=== PATIENT | female | born 1940 | race Caucasian/White ===

== ENCOUNTER → 2016-05-31 | Outpatient (CLI) | payer OTHER, MEDICARE ==
[2016-05-31 16:58] LABS: BASOPHILS # (AUTO) 0.03 10*3/UL; BASOPHILS % (AUTO) 0.5 % (0-1); EOSINOPHILS % (AUTO) 3.9 % (0-8); HEMATOCRIT 34.5 % (37.0-47.0); HEMOGLOBIN 10.9 g/dL (12.0-16.0); IMM GRAN % (AUTO) 0.2 % (0-5); IMM GRAN# (AUTO) 0.01 10*3/UL; LYMPHOCYTES # (AUTO) 2.58 10*3/uL; LYMPHOCYTES % (AUTO) 39.8 % (10-50); MEAN CORPUSCULAR HEMOGLOBIN 24.9 PG (27-31); MEAN CORPUSCULAR HGB CONC 31.6 g/dL (33-37); MEAN PLATELET VOLUME 11.4 FL (7.4-12.2); MONOCYTES # (AUTO) 0.44 10*3/UL (0.3-0.8); MONOCYTES % (AUTO) 6.8 % (5-15); NEUTROPHILS # (AUTO) 3.18 10*3/UL; NEUTROPHILS % (AUTO) 48.8 % (50-80); RDW COEFFICIENT OF VARIATION 17.7 % (11.5-14.5); RED BLOOD COUNT 4.37 10^6/uL (4.20-5.40); WHITE BLOOD COUNT 6.49 10^3/uL (4.8-10.8)
[2016-05-31 17:05] LABS: PLATELET MORPHOLOGY COMMENT NORMAL MORPHOLOGY (NORM)
== END ==
LOC: MOB LAB 15:34
PROVIDERS: ATTEND Internal Medicine
DX: E03.9 Hypothyroidism, unspecified (principal); D50.9 Iron deficiency anemia, unspecified; R19.7 Diarrhea, unspecified
CPT/HCPCS: 36415; 84436; 84443; 85025; 99214

== ENCOUNTER → 2016-06-09 | Outpatient (CLI) | payer OTHER, MEDICARE | LOC: MMPC 11:11 | PROVIDERS: ATTEND Surgery | DX: K21.9 Gastro-esophageal reflux disease without esophagitis (principal); R10.9 Unspecified abdominal pain; D64.9 Anemia, unspecified; R19.4 Change in bowel habit | CPT/HCPCS: 99203; G0463 ==

== ENCOUNTER → 2016-06-13 | Day surgery (SDC) | payer OTHER, MEDICARE ==
[~2016-06-13] MED LIST: LIDOCAINE 2% VISCOUS(20 MG/1 ML) - 15 ML UD CUP PO ONE; LIDOCAINE W/ SODIUM BICARB 0.5 ML SYR ONE; Lactated Ringers 1,000 ML PRIMARY IV ONE; MIDAZOLAM 5 MG/1 ML ONE; fentaNYL Inj 100 MCG/2 ML VIAL ONE
--- NOTE | 2016-06-13 09:49 | GEN.OPNOTE ---
EGD / Colonoscopy Report Surgery Date: 06/13/16 Preoperative Diagnosis: GERD. Abdominal pain. Anemia. Change in bowel habits with frequent diarrhea. Postoperative Diagnosis: Same. Hiatal hernia. Antral and gastric body ulcers. Extensive diverticulosis. Procedure: #1 esophagogastroduodenoscopy with biopsy. #2 complete colonoscopy with multiple random biopsies. Surgeon: Arias Laurent MD Anesthesia Provider: Bran Hernandez CRNA Anesthesia Type: MAC Indications: See preoperative diagnosis. EGD Findings: Esophagus: [Normal] GE Junction : [Hiatal hernia with inflammation at the Z line] Fundus : [Normal] Body : [Ulcer, healing] Prepyloric : [Ulcer, healing] Small Intestine : [Normal] A lubricated flexible upper endoscope was inserted and passed through the esophagus and stomach into the duodenum. The duodenum and duodenal bulb were unremarkable. The pyloric channel was widely patent. There is clearly an ulcer in the antrum. Biopsies were taken at the ulcer edges. Hemostasis was assured. The scope was retroflexed. There is an ulcer in the body of the stomach. No biopsies were taken. The scope was straightened. Air was aspirated. The scope was withdrawn into the distal esophagus. There is a moderate sized hiatal hernia. There is inflammation at the Z line. Multiple biopsies were taken. Hemostasis was assured. The scope was withdrawn through the remainder of a normal-appearing esophagus and brought through the hypopharynx under suction completing that portion of the procedure. Colonoscopy Findings: Prep : [Fair with some retained liquid and solid stool] Cecum : [Normal] Ascending : [Normal] Transverse : [Normal] Sigmoid : [Extensive diverticulosis] Rectum : [Normal] Digital Rectal Exam : [Normal] A lubricated flexible colonoscope was inserted and passed to the blind end of the cecum. A lubricated flexible colonoscope was inserted and passed through a tortuous sigmoid and advanced to the blind end of the cecum. The blind end of the cecum and ileocecal valve were clearly seen. Other than extensive diverticulosis the colonoscopy was visually normal. There was some retained stool but most of it was cleared. A small polyp could've been missed. Random biopsies were taken from the right colon, transverse colon, sigmoid colon, and rectum. There was no evidence of polyp, tumor, neoplastic mass, infectious or inflammatory process. The scope was withdrawn completing the procedure. Patient tolerated the procedure well without complication. She was taken to outpatient surgery in stable condition. We will call the biopsy results when available and plan therapy and follow-up accordingly. I'm going to switch her to pantoprazole 40 mg by mouth twice a day at this time as he omeprazole is not seemingly working. She probably needs to stop her meloxicam as well.
[2016-06-13 11:26] VITALS: RESP 14
[2016-06-13 11:34] VITALS: TEMP 97.7
== END ==
LOC: SDSC 08:03
PROVIDERS: ATTEND Surgery
DX: K21.9 Gastro-esophageal reflux disease without esophagitis (principal); K44.9 Diaphragmatic hernia without obstruction or gangrene; K25.9 Gastric ulcer, unspecified as acute or chronic, without hemorrhage or perforation; K57.90 Diverticulosis of intestine, part unspecified, without perforation or abscess without bleeding
CPT/HCPCS: 43239; 45380; J2704; J3010; J2250; J7120

== ENCOUNTER → 2016-06-16 | Outpatient (CLI) | payer OTHER, MEDICARE | LOC: MMPC 11:11 | PROVIDERS: ATTEND Internal Medicine | DX: D50.0 Iron deficiency anemia secondary to blood loss (chronic) (principal); K25.9 Gastric ulcer, unspecified as acute or chronic, without hemorrhage or perforation; F33.0 Major depressive disorder, recurrent, mild; G47.00 Insomnia, unspecified; M15.9 Polyosteoarthritis, unspecified; G47.33 Obstructive sleep apnea (adult) (pediatric) | CPT/HCPCS: 99214; G0463 ==

== ENCOUNTER 2016-07-30 14:10 | Emergency (ER) | payer OTHER, MEDICARE ==
[2016-07-30] MEDS ORDERED: NORMAL SALINE 10 ML SYRINGE FLUSH IVP PRN (14:58)
[2016-07-30] MEDS ORDERED: Sodium Chloride 0.9% 1,000 ML PRIMARY IV ONE (14:58)
[2016-07-30] MEDS ORDERED: Pantoprazole Inj 40 MG in Normal Saline Flush 10 ML IVP ONE (14:58)
[2016-07-30 15:41] LABS: BASOPHILS # (AUTO) 0.01 10*3/UL; BASOPHILS % (AUTO) 0.2 % (0-1); EOSINOPHILS % (AUTO) 2.6 % (0-8); HEMATOCRIT 36.6 % (37.0-47.0); HEMOGLOBIN 11.6 g/dL (12.0-16.0); IMM GRAN % (AUTO) 0.3 % (0-5); IMM GRAN# (AUTO) 0.02 10*3/UL; LYMPHOCYTES # (AUTO) 2.37 10*3/uL; LYMPHOCYTES % (AUTO) 38.4 % (10-50); MEAN CORPUSCULAR HEMOGLOBIN 24.1 PG (27-31); MEAN CORPUSCULAR HGB CONC 31.7 g/dL (33-37); MEAN PLATELET VOLUME 10.3 FL (7.4-12.2); MONOCYTES # (AUTO) 0.47 10*3/UL (0.3-0.8); MONOCYTES % (AUTO) 7.6 % (5-15); NEUTROPHILS # (AUTO) 3.14 10*3/UL; NEUTROPHILS % (AUTO) 50.9 % (50-80); RDW COEFFICIENT OF VARIATION 17.3 % (11.5-14.5); RED BLOOD COUNT 4.81 10^6/uL (4.20-5.40); WHITE BLOOD COUNT 6.17 10^3/uL (4.8-10.8)
[2016-07-30 15:47] LABS: PLATELET MORPHOLOGY COMMENT NORMAL MORPHOLOGY (NORM)
[2016-07-30 15:49] LABS: BILIRUBIN,TOTAL 0.4 mg/dL (0.3-1.2); BUN/CREATININE RATIO 17.77 (6-20); CALCIUM 9.9 mg/dL (8.7-10.7); CREATININE 0.9 mg/dL (0.50-1.20); TOTAL PROTEIN 7.4 g/dL (6.1-8.0)
[2016-07-30 16:06] LABS: BILIRUBIN,URINE NEGATIVE (NEG); CLARITY,URINE Slightly Clo (CLEAR); GLUCOSE, URINE (UA) NEGATIVE (NEG); LEUKOCYTE ESTERASE ,URINE MODERATE (NEG); NITRATE,URINE POSITIVE (NEG); OCCULT BLOOD,URINE SMALL (NEG); PROTEIN,URINE NEGATIVE (NEG); UROBILINOGEN,URINE 0.2 EU/dL (0.2)
[2016-07-30 16:21] LABS: RENAL EPITHELIAL CELLS,URINE FEW; SQUAMOUS EPITHELIAL CELL,UR RARE; URINE SAMPLE TYPE CATH SPECIMEN
[2016-07-30 16:22] LABS: BACTERIA,URINE MANY
--- NOTE | 2016-07-30 17:26 | DI ---
HISTORY: Abdominal pain. TECHNIQUE: Multiple CT images were obtained through the abdomen and pelvis with contrast. FINDINGS: There is a small hiatal hernia. There is no free air nor free fluid. Multiple colonic diverticula are seen without acute diverticul itis. The liver, spleen, pancreas, kidneys and adrenals are unremarkable. The patient is status post posterior spinal fusion of the lower lumbar spine. There is levoscoliosis of the upper lumbar spine. No hernia is demonstrated. There is a normal urinary bladder. IMPRESSION: 1. Hiatal hernia. 2. No acute intra-abdominal pathology.
[2016-07-30 17:51] VITALS: RESP 20; TEMP 97
--- NOTE | 2016-07-31 01:08 | PDOC ---
Abdomen/Flank HPI - General Chief Complaint: Genitourinary Complaint Stated Complaint: abdominal pain; dysuria Date Seen by Provider: 07/30/16 Time Seen by Provider: 14:40 Source: POSITIVE: Patient Exam Limitations: POSITIVE: No limitations Nurse's Notes Reviewed & Considered: Yes - History of Present Illness Initial Comments: The patient is a 75-year-old female. She states that for the past week she has had some or localized abdominal pain; mostly in the para umbilical and suprapubic area. She also complains of some dysuria. She states she feels like "my bladder is shifting". Body Location Affected: REPORTS: Abdomen Timing: REPORTS: Constant Duration: <1 week (Approximately one week) Severity: Moderate Quality: REPORTS: "Pain" (Poorly localized abdominal pain) Abdominal Pain Onset Location: REPORTS: RUQ, LUQ, Periumbilical, Suprapubic Abdominal Pain Radiation: REPORTS: No radiation Context: REPORTS: None Modifying Factors: improves with: Nothing Associated Symptoms: DENIES: Denies symptoms, Back pain, Bloody Emesis, Chest pain, Coffee Grounds Emesis, Chills, Diaphoresis, Fever, Fatigue, Headache, Heartburn, Loss of Appetite, Nausea, Rash, Shortness of breath, Swelling/mass in abdomen, Syncope, Testicular Pain, Vomiting, Weakness, Grossly Bloody Diarrhea, Constipation, Diarrhea, Dysuria, Incontinent Stool, Incontinent Urine , Mucous Diarrhea, Difficulty Walking, Dizziness, Light Headedness, Numbness, Other Similar Symptoms Previously: No Recent Care Received: REPORTS: Denies Any Prior Injuries Related to Current Complaint?: No - Patient Home Medications Home Medications: Home Medications Calcium 600 + Vit D Caplet 3 each PO DAILY 12/17/10 Vitamin D 10,000 unit PO QD 90 Days 07/06/11 Levothyroxine Sodium 1 tab PO DAILY #30 tab 07/30/15 Memantine HCl [Namenda] 1 tab PO QD #180 tab 09/30/15 Pantoprazole Sodium 40 mg PO BID #180 tab 06/13/16 Temazepam 1 cap ORAL QHS #90 capsule 06/16/16 Vilazodone Hydrochloride [Viibryd] 1 tab PO DAILY #90 tab 06/16/16 Cyclobenzaprine HCl 1 tab ORAL TID PRN #90 tab 07/06/16 Ciprofloxacin HCl 500 mg PO Q12H #20 tab 07/30/16 - Patient Allergies Allergies/Adverse Reactions: Allergies Allergy/AdvReac Type Severity Reaction Status Date / Time codeine Allergy Intermediate HIVES Verified 07/30/16 15:37 donepezil HCl [From Aricept] Allergy Intermediate rash Verified 07/30/16 15:37 cefdinir AdvReac Severe VOMITING Verified 07/30/16 15:37 hydrochlorothiazide AdvReac Severe VOMITING Verified 07/30/16 15:37 vortioxetine hydrobromide AdvReac Severe shakey, Verified 07/30/16 15:37 [From Brintellix] dizzy, nausea, sweats, uncontrolled yelling morphine AdvReac Intermediate N/V Verified 07/30/16 15:37 Past Medical History - heen HEENT History: Dentures/Partials Cardiovascular History: Denies History Respiratory History: Sleep Apnea, Home CPAP Use Gastrointestinal History: GERD Additional Gastrointestinal History: CHANGE IN BM/ DIARRHEA/ ABD PAIN Genitourinary History: Kidney Stones Additional Genitourinary History: YEARS AGO Endocrine History: Hypothyroidism Musculoskeletal History: Osteoporosis, Gout, Joint Pain Prosthesis or Implant: Yes (RIGHT TKA/BILAT BUNION/PLATE IN LOW BACK) Additional Musculoskeletal History: RESTLESS LEGS Neurological History: Denies History Additional Neurological History: MEMORY LOSS/RESTLESS LEG SYNDROME Blood Disorders: Anemia Psychiatric History: Depression, Anxiety Disorders History of Sexually Transmitted Diseases: No Obstetrical History: Denies History Cancer History: Skin In Past Year Been Physically Harmed or Verbally Threatened: No History of MDRO: No History of Other Communicable Diseases: No Tobacco Use: Never Smoker Alcohol Use: None Substance Use Type: None Previous Surgical History: Yes Type / Date of Surgery: APPY/ BILAT BUNIONECTOMY/ COLONOSCOPY/ FACE LIFT/ HYST/ LOW BACK SX WITH A PLATE/ RIGHT RCR/ RIGHT TKA Anesthesia Reactions: Yes (PONV) Malignant Hyperthermia: No Significant Family History: Asthma, Heart disease, Cancer Past Medical History Reviewed: Reviewed - No Changes ROS - Limitations ROS Limitations: No Limitations Constitution: REPORTS: Denies Symptoms Cardiovascular: REPORTS: Denies Cardiac Symptoms Respiratory: REPORTS: Denies Resp Symptoms Neurological: REPORTS: Denies Neuro Symptoms Gastrointestinal: REPORTS: Abdominal Pain Endocrine: REPORTS: Denies Symptoms Musculoskeletal: REPORTS: Denies MS Symptoms Genitourinary: REPORTS: Dysuria Eyes: REPORTS: Denies Symptoms ENT: REPORTS: Denies Symptoms Skin: REPORTS: Denies Skin Symptoms Lympathic: REPORTS: Denies Lympathic Symptoms Immunologic: POSITIVE: Denies Symptoms Psychiatric: POSITIVE: Denies Psych Symptoms Abdominal/Flank Pain PE - General Appearance General Appearance: POSITIVE: Alert, Cooperative, No Acute Distress, No Evidence of Trauma - HEENT HEENT: POSITIVE: Head Inspection Nml, Eyes Inspection Nml, Ears Inspection Nml, Nose Inspection Nml, Oral/Dental Inspect. Nml, Pharynx Inspect. Nml, PERRL, EOMI - Neck Neck: POSITIVE: Normal Inspection, No Apparent Injury - Respiratory Respiratory: POSITIVE: No Respiratory Distress, Breath Sounds Normal, Chest Non- Tender - Cardiovascular Cardiovascular: POSITIVE: Regular Rate and Rhythm, Heart Sounds Normal, Equal Pulses, Strong Pulses Peripheral Pulses: Radial (R): 2+, Radial (L): 2+ - Chest Chest: POSITIVE: Non Tender - Abdomen Abdomen: Soft: (All Quadrants), Normal Bowel Sounds: (All Quadrants), No Splenomegaly: (All Quadrants), No Hepatomegaly: (All Quadrants), No Guarding: ( All Quadrants), No Rebound: (All Quadrants), No Palpable Pulse: (All Quadrants) , No Palpabale Mass: (All Quadrants), No Distention: (All Quadrants), No Rigidity: (All Quadrants), Tenderness Noted: (RUQ), (LUQ), (RLQ), (LLQ) Additional Abdominal Details: Abdominal examination shows bowel sounds to be normal. Patient does express discomfort on direct palpation, mild, anywhere over the abdomen, but most prominently over the paraumbilical area. No masses or megaly or rebound. - Back Back: POSITIVE: Normal Inspection - Skin Skin: POSITIVE: Intact, Normal For Race, Warm, Dry, No Rash - Extremities Extremity: Non-Tender: (All Extremities), Normal ROM: (All Extremities), Normal Inspection: (All Extremities) - Neurological Neurological: POSITIVE: Oriented X3, scientific technical writer Normal As Tested, Motor Normal, Sensation Normal, 5, 6 - Psychological Psychiatric: POSITIVE: Affect Appropriate, Mood Appropriate Images - Complete Complete: 1 - Abdominal discomfort on palpation Abdomen Progress - Results Reviewed by me Xrays/CTs/US Reviewed by me: Yes Discussed with Radiologist: Yes Radiology Findings: CT scan abdomen and pelvis with IV contrast normal per radiologist Lab Results Reviewed: Yes (urine nitrate positive with some red and white blood cells) Lab Results:: Laboratory Results 07/30/16 07/30/16 Range/Units 13:30 13:45 WBC 6.17 (4.8-10.8) 10^3/uL RBC 4.81 (4.20-5.40) 10^6/uL Hgb 11.6 L (12.0-16.0) g/dL Hct 36.6 L (37.0-47.0) % MCV 76.1 L (81-99) FL MCH 24.1 L (27-31) PG MCHC 31.7 L (33-37) g/dL RDW Std Deviation 47.1 (39-50) fL RDW Coeff of Starr 17.3 H (11.5-14.5) % Plt Count 108 L (140-350) 10*3/uL MPV 10.3 (7.4-12.2) FL Immature Gran % (Auto) 0.3 (0-5) % Neut % (Auto) 50.9 (50-80) % Lymph % (Auto) 38.4 (10-50) % [place] % (Auto) 7.6 (5-15) % Eos % (Auto) 2.6 (0-8) % Baso % (Auto) 0.2 (0-1) % Immature Gran # (Auto) 0.02 10*3/UL Neut # (Auto) 3.14 10*3/UL Lymph # (Auto) 2.37 10*3/uL [place] # (Auto) 0.47 (0.3-0.8) 10*3/UL Eos # (Auto) 0.16 10*3/UL Baso # (Auto) 0.01 10*3/UL WBC Morphology Comment Normal morphology (NORM) Plt Morphology Comment Normal morphology (NORM) RBC Morph Comment Normal morphology (NORM) Sodium 141 (135-145) meq/L Potassium 4.0 (3.8-5.2) meq/L Chloride 108 (98-112) meq/L Carbon Dioxide 20 L (23-33) meq/L Anion Gap 13 (5-20) BUN 16 (7-22) mg/dL Creatinine 0.9 (0.50-1.20) mg/dL Estimated GFR (>60 ml/min/1.73m(2)) BUN/Creatinine Ratio 17.77 (6-20) Glucose 81 (78-110) mg/dL Calculated Osmolality 291.0 (267-292) mOsm/kg Calcium 9.9 (8.7-10.7) mg/dL Total Bilirubin 0.4 (0.3-1.2) mg/dL AST 19 (8-39) IU/L ALT 20 (9-52) IU/L Alkaline Phosphatase 83 (38-126) IU/L Total Protein 7.4 (6.1-8.0) g/dL Albumin 4.1 (3.5-4.8) g/dL Globulin 3.2 (2.50-4.10) g/dL Albumin/Globulin Ratio 1.20 L (1.3-2.0) mg/g Amylase 48 (30-110) U/L Lipase 56 (23-300) IU/L Ur Collection Type Cath specimen Urine Color Yellow Urine Clarity Slightly temitope (CLEAR) Urine pH 5.0 (5.0-8.5) Ur Specific [place] 1.020 (1.005-1.030) Urine Protein Negative (NEG) mg/dl Urine Glucose (UA) Negative (NEG) mg/dL Urine Ketones Negative (NEG) Urine Occult Blood Small H (NEG) Urine Nitrate Positive H (NEG) Urine Bilirubin Negative (NEG) Urine Urobilinogen 0.2 (0.2) EU/dL Ur Leukocyte Esterase Moderate (NEG) Urine RBC 12-15 (NONE) /hpf Urine WBC 8-12 (NONE) Ur Squamous Epith Cells Rare (NONE) Ur Renal Epithelial Cell Few (NONE) Urine Crystals None Urine Bacteria Many (NONE) Urine Casts None (NONE) Urine Mucus None (NONE) Urine Trichomonas None (NONE) Urine Yeast None (NONE) Ur Culture Indicated? Culture set - Patient's Progress Pain Medication Addressed: POSITIVE: Yes (Recommended Tylenol) School/Work Release Addressed: POSITIVE: Not Applicable Re-examine Time: 17:20 Status: POSITIVE: Unchanged, Re-Examined - Consult Counseled: POSITIVE: Patient, RE: Lab Results, RE: Radiology Results, RE: DX, RE : Need for F/U Patient Care Time - Estimated PCT Patient Care Time (In Minutes): 60 Vital Signs - VS Reviewed Vital Signs Reviewed: Yes Discharge Clinical Impression: Abdominal pain, Urinary tract infection Discharge Disposition: Discharged to Home Condition: Fair Prescriptions / Orders: Ciprofloxacin HCl 500 mg PO Q12H #20 tab Patient Instructions Given at Discharge: Urinary Tract Infection in Women (ED) , Acute Abdominal Pain (ED) Additional Instructions: Cipro, 500 mg every 12 hours for 10 days. You do have a urinary tract infection and I see no other source of your abdominal pain; the CAT scan of your abdomen and pelvis was normal and your blood work was all normal. Urinalysis did show that you probably do have a urinary tract infection. Follow -up with your primary care provider in 10 days, or sooner if your condition worsens. Return here anytime as necessary. Follow Up With: EDGARD PEARCE [Primary Care Provider] - (Instructions as above. Follow-up with your primary care provider. Return here as necessary.)
== END 2016-07-30 18:05 | disposition home or self-care (01) ==
LOC: ER 14:10
DX: N39.0 Urinary tract infection, site not specified (principal); R10.12 Left upper quadrant pain; R10.11 Right upper quadrant pain
CPT/HCPCS: 74177; 80053; 81001; 81003; 82150; 83690; 85025; 87077; 87088; 87186; 96374; 99283; J3490; J7030

== ENCOUNTER → 2016-08-05 | Outpatient (CLI) | payer OTHER, MEDICARE ==
[2016-08-05 17:56] LABS: STOOL OCCULT BLOOD 1 NEGATIVE (NEGATIVE)
[2016-08-05 18:06] LABS: FREE T4 (FREE THYROXINE) 1.85 ng/dL (0.93-1.71)
[2016-08-09 13:49] LABS: PARASITIC EXAM FIN 1140 (())
[2016-08-10 06:49] LABS: TTG AB IGA <1.2 U/mL (())
[2016-08-11 21:16] LABS: IGA, SERUM 189 mg/dL (61 - 356)
== END ==
LOC: MOB LAB 15:21
PROVIDERS: ATTEND Physician Assistant
DX: R10.84 Generalized abdominal pain (principal); R19.7 Diarrhea, unspecified; E03.9 Hypothyroidism, unspecified
CPT/HCPCS: 36415; 82272; 82656; 82710; 82784; 83516; 83630; 84376; 84439; 84443; 86256; 86816; 87046; 87177; 87205; 87209; 87328; 87329; 87338; 87449; 87493

== ENCOUNTER → 2016-08-10 | Outpatient (CLI) | payer OTHER, MEDICARE | LOC: MMPC 11:11 | PROVIDERS: ATTEND Nurse Practitioner | DX: R19.7 Diarrhea, unspecified (principal); E03.9 Hypothyroidism, unspecified; B00.1 Herpesviral vesicular dermatitis; M81.0 Age-related osteoporosis without current pathological fracture; R09.81 Nasal congestion | CPT/HCPCS: 99214; G0463; J0897 ==

== ENCOUNTER → 2016-08-23 | Outpatient (CLI) | payer OTHER, MEDICARE | LOC: MMPC 11:11 | PROVIDERS: ATTEND Nurse Practitioner | DX: K58.0 Irritable bowel syndrome with diarrhea (principal); E03.9 Hypothyroidism, unspecified | CPT/HCPCS: 99213; G0463 ==

== ENCOUNTER → 2016-11-16 | Outpatient (CLI) | payer OTHER, MEDICARE | LOC: MMPC 11:11 | PROVIDERS: ATTEND Internal Medicine | DX: K52.9 Noninfective gastroenteritis and colitis, unspecified (principal); G47.00 Insomnia, unspecified; G25.81 Restless legs syndrome | CPT/HCPCS: 99214; G0463 ==

== ENCOUNTER → 2016-11-21 | Outpatient (CLI) | payer OTHER, MEDICARE ==
--- NOTE | 2016-11-21 09:33 | DI ---
US ABDOMEN LIMITED,11/21/2016 8:53 AM: Clinical History: Chronic diarrhea of unknown origin. Previous Exam: Oct 09 2013 Findings: Multiple grayscale and color Doppler sonographic images are obtained through the right upper quadrant , and demonstrate some mild increased echogenicity of the liver without masses. The gallbladder is within normal limits. The pancreas is not well seen. The common bile duct measures 5 mm. The right kidney measures 9.6 cm without hydronephrosis nor nephrolithiasis. The aorta is unremarkable. Impression: Diffuse fatty infiltration of the liver otherwise unremarkable.
== END ==
LOC: US 08:47
PROVIDERS: ATTEND Internal Medicine
DX: K52.9 Noninfective gastroenteritis and colitis, unspecified (principal); K76.0 Fatty (change of) liver, not elsewhere classified
CPT/HCPCS: 76705